=== PATIENT | female | born 1970 | race Caucasian/White ===

== ENCOUNTER 2018-04-09 12:36 | Emergency (ER) | payer MEDICAID, OTHER ==
[~2018-04-09] VITALS: Ht 162.6 cm; Wt 77.1 kg
[~2018-04-09 12:36] MED LIST: CARI-277; HYDR-1421; INSLANTI; INSULIN; SEROQUEL
[2018-04-09 14:47] VITALS: BP 98/65
[2018-04-09] MEDS ORDERED: methylPREDNISolone SOD SUCC 125 MG/2 ML VL IM ONE (15:00)
[2018-04-09] MEDS ORDERED: KETOROLAC TROMETH 60MG/2ML VIAL IM ONE (15:00)
== END 2018-04-09 15:35 | disposition home or self-care (01) ==
LOC: ER 12:43
DX: H60.93 Unspecified otitis externa, bilateral (principal); E11.9 Type 2 diabetes mellitus without complications; I11.0 Hypertensive heart disease with heart failure; I50.9 Heart failure, unspecified; Z88.0 Allergy status to penicillin; Z88.1 Allergy status to other antibiotic agents; Z79.4 Long term (current) use of insulin; Z79.899 Other long term (current) drug therapy
CPT/HCPCS: 82962; 96372; 99283; J1885; J2930

== ENCOUNTER 2018-09-05 17:03 | Emergency (ER) | payer MEDICAID ==
[~2018-09-05] VITALS: Ht 162.6 cm; Wt 92.1 kg
[2018-09-05 17:56] LABS: Basophils # (auto) 0.1 uL; Basophils % (auto) 0.7 % (0.0-2.0); Eosinophils # (auto) 1.9 uL; Eosinophils % (auto) 8.3 % (0.0-7.0); Hematocrit 48.1 % (36.0-46.0); Hemoglobin 16.2 g/dL (12.2-16.2); Lymphocytes # (auto) 4.5 uL; Lymphocytes % (auto) 19.9 % (10.0-50.0); Mean Corpuscular Hemoglobin 29.3 pg (28.0-32.0); Mean Corpuscular Hgb Conc. 33.8 g/dL (32.0-36.0); Mean Corpuscular Volume 86.8 fL (80.0-100.0); Monocytes # (auto) 1.5 uL; Monocytes % (auto) 6.5 % (0.0-12.0); Neutrophils # (auto) 14.8 uL; Neutrophils % (auto) 64.6 % (37.0-80.0); Platelet Count (auto) 409 10^3/uL (140-450); Red Blood Cells 5.55 10^6/uL (4.0-5.20); Red Cell Distribution Width 13.7 % (11.8-14.3); White Blood Cell 22.8 10^3/uL (4.4-10.8)
[2018-09-05 18:19] LABS: Sodium 132 mmol/L (136-145)
[2018-09-05 18:20] LABS: Alanine Aminotransferase 23 U/L (13-56); Alkaline Phosphatase 185 U/L (45-117); Anion Gap 10 (5-15); Aspartate Aminotransferase 12 U/L (15-37); Blood Urea Nitrogen 11 mg/dL (7-18); Calcium 8.5 mg/dL (8.5-10.1); Carbon Dioxide 23 mmol/L (21-32); Chloride 99 mmol/L (98-107); GFR African American 84 mL/min; GFR Non-African American 70 mL/min
[2018-09-05 18:21] LABS: Albumin 3.5 g/dL (3.4-5.0); Bilirubin, Total 0.7 mg/dL (0.2-1.0); Total Protein 7.7 g/dL (6.4-8.2)
[2018-09-05 18:24] LABS: Glucose 415 mg/dL (74-106)
[2018-09-06 00:30] VITALS: BP 123/73
== END 2018-09-06 00:33 | disposition left against medical advice (07) ==
LOC: ER 17:03
DX: R06.02 Shortness of breath (principal); Z53.21 Procedure and treatment not carried out due to patient leaving prior to being seen by health care provider
CPT/HCPCS: 36415; 71046; 80053; 84484; 85025; 93005

== ENCOUNTER 2020-08-27 14:23 | Emergency (ER) | payer MEDICAID ==
[~2020-08-27] VITALS: Ht 162.6 cm; Wt 79.8 kg
[2020-08-27 15:26] VITALS: BP 132/87
[2020-08-27] MEDS ORDERED: ACETAMINOPHEN 500 MG TAB PO ONE (16:00)
[2020-08-27] MEDS ORDERED: cefTRIAXone SOD 1,000 MG VL IM ONE (16:00)
[2020-08-27 16:46] LABS: Amphetamine Screen, Urine POSITIVE (NEGATIVE); Barbiturate Scree,Urine NEGATIVE (NEGATIVE); Benzodiazephine Screen, Urine NEGATIVE (NEGATIVE); Cannabinoid Screen, Urine NEGATIVE (NEGATIVE); Cocaine Screen, Urine NEGATIVE (NEGATIVE); Opiate Scree,Urine NEGATIVE (NEGATIVE); Phencyclidine Screen, Urine NEGATIVE (NEGATIVE)
== END 2020-08-27 16:21 | disposition home or self-care (01) ==
LOC: ER 14:23
DX: S80.862A Insect bite (nonvenomous), left lower leg, initial encounter (principal); S80.861A Insect bite (nonvenomous), right lower leg, initial encounter; S60.562A Insect bite (nonvenomous) of left hand, initial encounter; S60.561A Insect bite (nonvenomous) of right hand, initial encounter; S00.86XA Insect bite (nonvenomous) of other part of head, initial encounter; L01.00 Impetigo, unspecified; F15.10 Other stimulant abuse, uncomplicated; F12.10 Cannabis abuse, uncomplicated; I11.0 Hypertensive heart disease with heart failure; I50.9 Heart failure, unspecified; E11.9 Type 2 diabetes mellitus without complications; J44.9 Chronic obstructive pulmonary disease, unspecified; Z79.4 Long term (current) use of insulin; Z79.899 Other long term (current) drug therapy; Z88.1 Allergy status to other antibiotic agents; Z88.8 Allergy status to other drugs, medicaments and biological substances; W57.XXXA Bitten or stung by nonvenomous insect and other nonvenomous arthropods, initial encounter; Y93.89 Activity, other specified; Y92.89 Other specified places as the place of occurrence of the external cause; Y99.8 Other external cause status
CPT/HCPCS: 80307; 99283; J0696

== ENCOUNTER 2021-02-04 20:42 | Emergency (ER) | payer MEDICAID ==
[~2021-02-04] VITALS: Ht 162.6 cm; Wt 83.9 kg
[2021-02-04 22:45] VITALS: BP 142/87
[2021-02-04] MEDS ORDERED: TETANUS-DIPTH-ACEL PERTUSSIS 0.5ML SYR Tdap IM ONE (23:00)
[2021-02-04] MEDS ORDERED: guaiFENesin-CODEINE Liq 5 ML UD PO ONE (23:15)
[2021-02-05] MEDS ORDERED: BACITRACIN TOP OINT 1 UD PKG TOP ONE (00:45)
== END 2021-02-05 01:13 | disposition home or self-care (01) ==
LOC: ER 20:42
DX: S61.011A Laceration without foreign body of right thumb without damage to nail, initial encounter (principal); I11.0 Hypertensive heart disease with heart failure; I50.9 Heart failure, unspecified; E11.9 Type 2 diabetes mellitus without complications; J44.9 Chronic obstructive pulmonary disease, unspecified; Z87.891 Personal history of nicotine dependence; Z79.4 Long term (current) use of insulin; Z79.899 Other long term (current) drug therapy; Z88.1 Allergy status to other antibiotic agents; Z88.8 Allergy status to other drugs, medicaments and biological substances; W26.8XXA Contact with other sharp object(s), not elsewhere classified, initial encounter; Y93.89 Activity, other specified; Y92.89 Other specified places as the place of occurrence of the external cause; Y99.8 Other external cause status
CPT/HCPCS: 12002; 90471; 90715

== ENCOUNTER 2021-08-08 16:45 | Emergency (ER) | payer MEDICAID ==
[~2021-08-08] VITALS: Ht 165.1 cm; Wt 70.3 kg
[2021-08-08 17:20] VITALS: BP 135/82
[2021-08-08] MEDS ORDERED: CLIN300C8 PO (19:14)
[2021-08-08] MEDS: diphenhdrAMINE HCL 25 MG CAP PO ONE (22:57)
[2021-08-08] MEDS: DexAMETHasone SOD PHOS 10MG/1ML VIAL INJ IM ONE (22:57)
[2021-08-08] MEDS: CLINDAMYCIN HCL 150 MG CAP PO ONE (22:58)
== END 2021-08-08 23:50 | disposition home or self-care (01) ==
LOC: ER 16:45
DX: J02.9 Acute pharyngitis, unspecified (principal); I11.0 Hypertensive heart disease with heart failure; J44.9 Chronic obstructive pulmonary disease, unspecified; E11.9 Type 2 diabetes mellitus without complications; F12.10 Cannabis abuse, uncomplicated; Z87.891 Personal history of nicotine dependence; Z88.1 Allergy status to other antibiotic agents; Z88.8 Allergy status to other drugs, medicaments and biological substances; Z20.822 Contact with and (suspected) exposure to COVID-19
CPT/HCPCS: 36415; 87070; 87426; 87880; 96372; 99283; J1100

== ENCOUNTER 2022-11-26 22:30 | Inpatient (IN) | payer MEDICAID ==
[~2022-11-26] VITALS: Ht 162.6 cm; Wt 79.4 kg
[~2022-11-26 22:30] MED LIST changes: +CLIN300C70 PO; +HYDR-4902 PO; +IBUP-1455 PO
[2022-11-26 23:18] LABS: Basophils # (auto) 0.1 10 ^3/uL (0-0.2); Basophils % (auto) 0.3 % (0.0-2.0); Eosinophils # (auto) 0.3 10 ^3/uL (0-0.8); Eosinophils % (auto) 1.5 % (0.0-7.0); Hematocrit 40.7 % (36.0-46.0); Hemoglobin 13.7 g/dL (12.2-16.2); Lymphocytes # (auto) 2.9 10 ^3/uL (0.4-5.4); Lymphocytes % (auto) 16.3 % (10.0-50.0); Mean Corpuscular Hemoglobin 29.2 pg (28.0-32.0); Mean Corpuscular Hgb Conc. 33.5 g/dL (32.0-36.0); Mean Corpuscular Volume 87.1 fL (80.0-100.0); Monocytes # (auto) 1.2 10 ^3/uL (0-1.3); Monocytes % (auto) 6.6 % (0.0-12.0); Neutrophils # (auto) 13.3 10 ^3/uL (1.6-8.6); Neutrophils % (auto) 75.3 % (37.0-80.0); Red Blood Cells 4.68 10^6/uL (4.0-5.20); Red Cell Distribution Width 13.1 % (11.8-14.3); White Blood Cell 17.7 10^3/uL (4.4-10.8)
[2022-11-26 23:38] LABS: Alanine Aminotransferase 17 U/L (7-40); Alkaline Phosphatase 161 U/L (46-116); Anion Gap 5.8 (5-15); Aspartate Aminotransferase 9 U/L (13-40); BUN/Creatinine Ratio 9.2 (10.0-20.0); Blood Urea Nitrogen 9 mg/dL (9-23); Calcium 9.3 mg/dL (8.7-10.4); Carbon Dioxide 29.2 mmol/L (20-30); Chloride 100 mmol/L (98-107); Glucose 370 mg/dL (74-106); Potassium 3.7 mmol/L (3.5-5.1); Sodium 135 mmol/L (136-145)
[2022-11-26 23:39] LABS: Albumin 4.3 g/dL (3.2-4.8); Bilirubin, Total 0.4 mg/dL (0.2-1.0); Total Protein 7.5 g/dL (5.7-8.2)
[2022-11-27] MEDS ORDERED: IODIXANOL 320MG/ML 100ML BTL IV ONE (03:55)
[2022-11-27] MEDS ORDERED: PIPERACILLIN-TAZOB 3.375GM 100 ML IV ONE (04:00)
[2022-11-27] MEDS ORDERED: VANCOMYCIN 1GM/250ML 250 ML IV ONE ×2 (04:00→10:00)
[2022-11-27] MEDS ORDERED: DEXTROSE (50%) 50ML SYRG IV PRN (06:30)
[2022-11-27] MEDS ORDERED: MORPHINE SULFATE INJ 2 MG/ml SYRG IV PRN (06:30)
[2022-11-27] MEDS ORDERED: levoFLOXacin 500MG 100 ML IV SCH (07:00)
[2022-11-27] MEDS: SODIUM CHLORIDE 0.9% 1,000 ML IV SCH ×2 (07:51→19:50)
[2022-11-27] MEDS: ONDANSETRON HCL 4 MG/2 ML VIAL IV PRN ×2 (08:07→22:40)
[2022-11-27 09:03] VITALS: PULSE 105; RESP 12; O2SAT 97
[2022-11-27] MEDS: PANTOPRAZOLE 40 MG/10 ML VIAL INJ IV SCH (10:00)
[2022-11-27] MEDS: ACCU-CHEK COMFORT CURVE STRIP VI SCH ×3 (13:01→23:59)
[2022-11-27] MEDS: InsuLIN REG 1unit/0.01ml Soln (100units/ml) SC SCH ×3 (13:02→23:59)
[2022-11-27 13:31] LABS: Urine WBC None Seen /hpf (0 - 5)
[2022-11-27 14:05] LABS: Urine Bacteria NONE SEEN /hpf (None Seen); Urine Blood Negative /uL (Negative); Urine Clarity Clear (Clear); Urine Color Yellow (Yellow); Urine Mucus FEW (None Seen); Urine Protein, UAD 1+ (Negative)
[2022-11-27 14:19] LABS: Amphetamine Screen, Urine Pos (NEGATIVE); Barbiturate Scree,Urine Neg (NEGATIVE); Benzodiazephine Screen, Urine Neg (NEGATIVE); Cannabinoid Screen, Urine Pos (NEGATIVE); Cocaine Screen, Urine Neg (NEGATIVE); Opiate Scree,Urine Neg (NEGATIVE); Phencyclidine Screen, Urine Neg (NEGATIVE)
[2022-11-27 14:21] LABS: Urine Specific Gravity > 1.050 (1.001-1.035)
[2022-11-27] MEDS: OXYCODONE W/ ACETAMINOPHEN 5/325MG TABLET PO PRN ×2 (15:12→22:40)
[2022-11-27] MEDS: PIPERACILLIN-TAZOB 3.375GM 100 ML IV SCH (18:57)
[2022-11-27] MEDS: DOCUSATE SOD 100 MG CAP PO SCH (22:41)
[2022-11-27 23:47] VITALS: BP 109/70; PULSE 107; RESP 18; TEMP 98.1; O2SAT 90
[2022-11-28] VITALS (10 sets, daily range): BP systolic 107–132; BP diastolic 64–75; PULSE 69–102; RESP 16–19; TEMP 97.9–98.6; O2SAT 91–98
[2022-11-28] MEDS: PIPERACILLIN-TAZOB 3.375GM 100 ML IV SCH ×3 (02:00→12:24)
[2022-11-28 06:03] LABS: Basophils # (auto) 0.1 10 ^3/uL (0-0.2); Basophils % (auto) 0.5 % (0.0-2.0); Eosinophils # (auto) 0.3 10 ^3/uL (0-0.8); Eosinophils % (auto) 1.9 % (0.0-7.0); Hematocrit 37.7 % (36.0-46.0); Hemoglobin 12.8 g/dL (12.2-16.2); Lymphocytes # (auto) 1.7 10 ^3/uL (0.4-5.4); Lymphocytes % (auto) 11.3 % (10.0-50.0); Mean Corpuscular Hemoglobin 29.5 pg (28.0-32.0); Mean Corpuscular Volume 86.7 fL (80.0-100.0); Monocytes # (auto) 1.1 10 ^3/uL (0-1.3); Monocytes % (auto) 7.7 % (0.0-12.0); Neutrophils # (auto) 11.5 10 ^3/uL (1.6-8.6); Neutrophils % (auto) 78.6 % (37.0-80.0); Red Blood Cells 4.35 10^6/uL (4.0-5.20); Red Cell Distribution Width 13.1 % (11.8-14.3); White Blood Cell 14.7 10^3/uL (4.4-10.8)
[2022-11-28] MEDS: ACCU-CHEK COMFORT CURVE STRIP VI SCH ×4 (06:48→23:32)
[2022-11-28] MEDS: OXYCODONE W/ ACETAMINOPHEN 5/325MG TABLET PO PRN (06:48)
[2022-11-28 06:49] LABS: Alanine Aminotransferase 352 U/L (7-40); Albumin 3.6 g/dL (3.2-4.8); Alkaline Phosphatase 392 U/L (46-116); Anion Gap 6.4 (5-15); Aspartate Aminotransferase 350 U/L (13-40); BUN/Creatinine Ratio 15.1 (10.0-20.0); Blood Urea Nitrogen 11 mg/dL (9-23); Calcium 8.7 mg/dL (8.7-10.4); Carbon Dioxide 27.6 mmol/L (20-30); Chloride 101 mmol/L (98-107); Glucose 184 mg/dL (74-106); Potassium 3.6 mmol/L (3.5-5.1); Sodium 135 mmol/L (136-145)
[2022-11-28 06:50] LABS: Bilirubin, Total 0.6 mg/dL (0.2-1.0); Total Protein 6.3 g/dL (5.7-8.2)
[2022-11-28] MEDS: InsuLIN REG 1unit/0.01ml Soln (100units/ml) SC SCH ×4 (06:54→23:29)
[2022-11-28] MEDS: SODIUM CHLORIDE 0.9% 1,000 ML IV SCH ×2 (08:49→09:10)
[2022-11-28] MEDS: DOCUSATE SOD 100 MG CAP PO SCH ×2 (10:00→23:36)
[2022-11-28 10:42] LABS: INR 1.14 (0.9-1.15); Partial Thromboplastin Time 29.5 SEC (24.5-34.5); Prothrombin Time 11.9 sec (9.3-11.8)
[2022-11-28] MEDS: PANTOPRAZOLE 40 MG/10 ML VIAL INJ IV SCH (12:24)
[2022-11-28] MEDS ORDERED: PNEUMOCOCCAL VACC POLYS 25 MCG/0.5 ML VIAL IM ONE (14:00)
[2022-11-28] MEDS ORDERED: fentaNYL CITRATE 100 MCG/2 ML VL ONE (14:25)
[2022-11-28] MEDS ORDERED: MIDAZOLAM HCL 2MG/2ML 2ml VIAL (1mg/ml) ONE (14:25)
[2022-11-28] MEDS ORDERED: PROPOFOL 10 MG/ML 20 ML IV ONE (14:54)
[2022-11-28] MEDS ORDERED: LABETALOL HCL 5 MG/ML 4ML SYRINGE IV PRN (15:30)
[2022-11-28] MEDS ORDERED: HYDROmorphone HCL 2 MG/ML VL/or syr IV PRN (15:30)
[2022-11-28] MEDS ORDERED: MORPHINE SULFATE 4 MG/ML SYR/VIAL IV PRN (15:30)
[2022-11-28] MEDS ORDERED: ePHEDrine SULFATE 50 MG/ML AMP IV PRN (15:30)
[2022-11-28] MEDS ORDERED: ONDANSETRON HCL 4 MG/2 ML VIAL IV PRN (15:30)
[2022-11-28] MEDS ORDERED: MIDAZOLAM HCL 2MG/2ML 2ml VIAL (1mg/ml) IV PRN (15:30)
[2022-11-28] MEDS ORDERED: ALBUTEROL SULF 2.5 MG/0.5ML(0.5%) NEB SOLN NEB PRN (17:15)
[2022-11-28] MEDS ORDERED: VANCOMYCIN PER PHARMACY 0 MG IV SCH (17:15)
[2022-11-28] MEDS ORDERED: IPRATROPIUM BROM 0.5 MG/2.5ML INH SOL NEB PRN (17:15)
[2022-11-28] MEDS ORDERED: VANCOMYCIN 1GM/250ML 250 ML IV ONE (17:30)
[2022-11-28] MEDS ORDERED: PIPERACILLIN-TAZOB 3.375GM 100 ML IV SCH (22:00)
[2022-11-28] MEDS: MUPIROCIN 2% OINT 15gm or 22gm FOR MRSA NARES EACHNOSTRI SCH (22:00)
[2022-11-29] VITALS (7 sets, daily range): BP systolic 93–116; BP diastolic 60–68; PULSE 72–101; RESP 16–20; TEMP 36.9; O2SAT 90–96
[2022-11-29] MEDS: CEFEPIME 2GM/50ML NS 50 ML IV SCH ×3 (00:13→17:17)
[2022-11-29] MEDS: SODIUM CHLORIDE 0.9% 1,000 ML IV SCH (06:27)
[2022-11-29] MEDS: ACCU-CHEK COMFORT CURVE STRIP VI SCH ×3 (06:27→17:47)
[2022-11-29] MEDS: InsuLIN REG 1unit/0.01ml Soln (100units/ml) SC SCH ×3 (06:52→17:47)
[2022-11-29 07:53] LABS: Basophils # (auto) 0.1 10 ^3/uL (0-0.2); Basophils % (auto) 0.7 % (0.0-2.0); Eosinophils # (auto) 0.4 10 ^3/uL (0-0.8); Hematocrit 38.3 % (36.0-46.0); Hemoglobin 12.9 g/dL (12.2-16.2); Lymphocytes # (auto) 2.3 10 ^3/uL (0.4-5.4); Lymphocytes % (auto) 16.1 % (10.0-50.0); Mean Corpuscular Hemoglobin 29.1 pg (28.0-32.0); Mean Corpuscular Hgb Conc. 33.6 g/dL (32.0-36.0); Mean Corpuscular Volume 86.5 fL (80.0-100.0); Monocytes # (auto) 1.1 10 ^3/uL (0-1.3); Monocytes % (auto) 7.5 % (0.0-12.0); Neutrophils # (auto) 10.6 10 ^3/uL (1.6-8.6); Neutrophils % (auto) 72.7 % (37.0-80.0); Red Blood Cells 4.42 10^6/uL (4.0-5.20); Red Cell Distribution Width 13.1 % (11.8-14.3); White Blood Cell 14.6 10^3/uL (4.4-10.8)
[2022-11-29] MEDS ORDERED: VANCOMYCIN 1GM/250ML 250 ML IV SCH (08:00)
[2022-11-29 08:09] LABS: Anion Gap 6.5 (5-15); Carbon Dioxide 26.5 mmol/L (20-30); Chloride 103 mmol/L (98-107); Potassium 3.8 mmol/L (3.5-5.1); Sodium 136 mmol/L (136-145)
[2022-11-29 08:10] LABS: Calcium 8.8 mg/dL (8.5-10.1)
[2022-11-29 08:15] LABS: BUN/Creatinine Ratio 11.1 (10.0-20.0); Blood Urea Nitrogen 9 mg/dL (9-23); Glucose 188 mg/dL (74-106)
[2022-11-29] MEDS: MUPIROCIN 2% OINT 15gm or 22gm FOR MRSA NARES EACHNOSTRI SCH (10:00)
[2022-11-29] MEDS: PANTOPRAZOLE 40 MG/10 ML VIAL INJ IV SCH (10:05)
[2022-11-29] MEDS: DOCUSATE SOD 100 MG CAP PO SCH (10:05)
[2022-11-29] MEDS: OXYCODONE W/ ACETAMINOPHEN 5/325MG TABLET PO PRN (10:06)
[2022-11-29] MEDS ORDERED: BACDST PO (14:09)
[2022-11-29] MEDS ORDERED: CEPH250C PO (14:09)
[2022-11-29] MEDS ORDERED: NAP500T PO (14:10)
[2022-11-30 09:32] LABS: Hepatitis B Surface Antigen Negative (Negative)
[2022-11-30 09:54] LABS: Hepatitis C Antibody Negative (Negative)
== END 2022-11-29 18:36 | disposition home or self-care (01) | DRG 383 ==
LOC: ER 22:35 → OVERFLOW 11-27 06:21 → CENTRAL 11-27 20:52
PROVIDERS: ADMIT Internal Medicine; ATTEND Student in an Organized Health Care Education/Training Program
PROC: 0X940ZZ Drainage of Right Axilla, Open Approach (ICD-10-PCS; principal; 2022-11-28 14:14)
DX: L02.411 Cutaneous abscess of right axilla (principal); I11.0 Hypertensive heart disease with heart failure; I50.9 Heart failure, unspecified; D72.829 Elevated white blood cell count, unspecified; E11.65 Type 2 diabetes mellitus with hyperglycemia; J44.9 Chronic obstructive pulmonary disease, unspecified; L03.111 Cellulitis of right axilla; Z88.1 Allergy status to other antibiotic agents; Z88.8 Allergy status to other drugs, medicaments and biological substances
CPT/HCPCS: 36415; 71045; 71260; 76705; 80048; 80053; 80307; 81001; 82962; 83605; 84484; 85025; 85610; 85730; 86803; 87040; 87070; 87075; 87077; 87081; 87186; 87205; 87340; 93005; 96365; 96367; 96368; 96372; 96375; C9113; G0378; J0692; J1815; J1956; J2250; J2405; J2543; J2704; Q9967

== ENCOUNTER 2023-02-07 00:24 | Emergency (ER) | payer MEDICAID ==
[~2023-02-07] VITALS: Ht 162.6 cm; Wt 75.0 kg
[~2023-02-07 00:24] MED LIST changes: +BACDST PO; +CEPH250C PO; +NAP500T PO
[2023-02-07 01:03] LABS: Basophils # (auto) 0.1 10 ^3/uL (0-0.2); Basophils % (auto) 0.8 % (0.0-2.0); Eosinophils # (auto) 0.4 10 ^3/uL (0-0.8); Eosinophils % (auto) 3.9 % (0.0-7.0); Hematocrit 42.7 % (36.0-46.0); Hemoglobin 14.6 g/dL (12.2-16.2); Lymphocytes % (auto) 28.7 % (10.0-50.0); Mean Corpuscular Hemoglobin 29.8 pg (28.0-32.0); Mean Corpuscular Hgb Conc. 34.3 g/dL (32.0-36.0); Mean Corpuscular Volume 86.9 fL (80.0-100.0); Monocytes # (auto) 0.6 10 ^3/uL (0-1.3); Neutrophils # (auto) 6.2 10 ^3/uL (1.6-8.6); Neutrophils % (auto) 60.6 % (37.0-80.0); Red Blood Cells 4.91 10^6/uL (4.0-5.20); Red Cell Distribution Width 13.4 % (11.8-14.3); White Blood Cell 10.3 10^3/uL (4.4-10.8)
[2023-02-07 01:20] LABS: Alanine Aminotransferase 15 U/L (7-40); Alkaline Phosphatase 149 U/L (46-116); Anion Gap 6 (5-15); Aspartate Aminotransferase 10 U/L (13-40); BUN/Creatinine Ratio 14.9 (10.0-20.0); Blood Urea Nitrogen 15 mg/dL (9-23); Calcium 8.9 mg/dL (8.7-10.4); Carbon Dioxide 26 mmol/L (20-30); Chloride 105 mmol/L (98-107); Glucose 283 mg/dL (74-106); Magnesium 1.6 mg/dL (1.6-2.6); Potassium 3.8 mmol/L (3.5-5.1); Sodium 137 mmol/L (136-145)
[2023-02-07 01:21] LABS: Bilirubin, Total 0.2 mg/dL (0.2-1.0); Total Protein 6.9 g/dL (5.7-8.2)
[2023-02-07 01:22] LABS: INR 0.99 (0.9-1.15); Partial Thromboplastin Time 28.3 SEC (24.5-34.5); Prothrombin Time 10.4 sec (9.3-11.8)
[2023-02-07 06:30] VITALS: BP 131/89; PULSE 105; RESP 20; O2SAT 96
== END 2023-02-07 06:36 | disposition home or self-care (01) ==
LOC: EDBD 00:24 → ER 00:24
DX: R07.89 Other chest pain (principal); F15.10 Other stimulant abuse, uncomplicated; F12.10 Cannabis abuse, uncomplicated; I11.0 Hypertensive heart disease with heart failure; I50.9 Heart failure, unspecified; E11.9 Type 2 diabetes mellitus without complications; J44.9 Chronic obstructive pulmonary disease, unspecified; F17.210 Nicotine dependence, cigarettes, uncomplicated; Z79.4 Long term (current) use of insulin; Z79.1 Long term (current) use of non-steroidal anti-inflammatories (NSAID); Z79.2 Long term (current) use of antibiotics; Z79.899 Other long term (current) drug therapy; Z88.1 Allergy status to other antibiotic agents; Z88.5 Allergy status to narcotic agent; Z88.8 Allergy status to other drugs, medicaments and biological substances
CPT/HCPCS: 36415; 71045; 80053; 83735; 83880; 84484; 85025; 85610; 85730; 93005

== ENCOUNTER 2023-04-14 15:13 | Inpatient (IN) | payer MEDICAID ==
[~2023-04-14] VITALS: Ht 162.6 cm; Wt 91.8 kg
[~2023-04-14 15:13] MED LIST changes: -CARI-277; +CARI-277 PO; -INSLANTI; +INSLANTI SC
[2023-04-14] MEDS ORDERED: HYDROmorphone HCL 2 MG/ML VL/or syr IM ONE (16:15)
[2023-04-14] MEDS ORDERED: ONDANSETRON HCL 4 MG/2 ML VIAL IM ONE (16:15)
[2023-04-14 16:20] LABS: Basophils # (auto) 0.1 10 ^3/uL (0-0.2); Basophils % (auto) 0.6 % (0.0-2.0); Eosinophils # (auto) 0.1 10 ^3/uL (0-0.8); Eosinophils % (auto) 0.6 % (0.0-7.0); Hematocrit 50.6 % (36.0-46.0); Hemoglobin 16.7 g/dL (12.2-16.2); Lymphocytes # (auto) 2.8 10 ^3/uL (0.4-5.4); Lymphocytes % (auto) 15.1 % (10.0-50.0); Mean Corpuscular Hemoglobin 28.7 pg (28.0-32.0); Mean Corpuscular Volume 87.1 fL (80.0-100.0); Monocytes # (auto) 0.8 10 ^3/uL (0-1.3); Monocytes % (auto) 4.6 % (0.0-12.0); Neutrophils # (auto) 14.5 10 ^3/uL (1.6-8.6); Neutrophils % (auto) 79.1 % (37.0-80.0); Red Cell Distribution Width 13.8 % (11.8-14.3); White Blood Cell 18.3 10^3/uL (4.4-10.8)
[2023-04-14 16:22] LABS: Chloride 101 mmol/L (98-107); Potassium 4.6 mmol/L (3.5-5.1); Sodium 132 mmol/L (136-145)
[2023-04-14 16:23] LABS: Anion Gap 10 (5-15); Carbon Dioxide 21 mmol/L (20-30)
[2023-04-14 16:24] LABS: Calcium 9.7 mg/dL (8.5-10.1)
[2023-04-14 16:28] LABS: BUN/Creatinine Ratio 11.9 (10.0-20.0); Blood Urea Nitrogen 12 mg/dL (9-23); Glucose 400 mg/dL (74-106)
[2023-04-14 16:50] VITALS: PULSE 125; RESP 18; O2SAT 99
[2023-04-14] MEDS ORDERED: SODIUM CHLORIDE 0.9% 1,000 ML IV ONE (18:30)
[2023-04-14] MEDS ORDERED: INSULIN LISPRO (HUMAN) 100 UNITS/ML ML SC ONE ×2 (18:30→19:15)
[2023-04-14 23:36] LABS: Urine Epithelial Cast None Seen /hpf (<5)
[2023-04-15] VITALS (13 sets, daily range): BP systolic 85–163; BP diastolic 64–80; PULSE 97–150; RESP 18–32; TEMP 98.3; O2SAT 98–100
[2023-04-15 00:03] LABS: Amphetamine Screen, Urine Pos (NEGATIVE); Barbiturate Scree,Urine Neg (NEGATIVE); Benzodiazephine Screen, Urine Neg (NEGATIVE); Cocaine Screen, Urine Neg (NEGATIVE); Opiate Scree,Urine Neg (NEGATIVE); Phencyclidine Screen, Urine Neg (NEGATIVE)
[2023-04-15 00:04] LABS: Cannabinoid Screen, Urine Neg (NEGATIVE)
[2023-04-15 00:09] LABS: Urine Bacteria MANY /hpf (None Seen); Urine Hyaline Cast FEW /lpf (0 - 2); Urine Mucus FEW (None Seen); Urine WBC 55 /hpf (0 - 5)
[2023-04-15 00:20] LABS: Urine Clarity HAZY (Clear); Urine Color Yellow (Yellow)
[2023-04-15 00:23] LABS: Urine Specific Gravity 1.015 (1.001-1.035)
[2023-04-15 00:24] LABS: Urine Blood 2+ /uL (Negative); Urine Protein, UAD TRACE (Negative); Urine Urobilinogen Normal (Negative)
[2023-04-15] MEDS ORDERED: CEFTRIAXONE SODIUM 2 GM in D5W 5% 100 ML IV ONE (00:45)
[2023-04-15] MEDS ORDERED: levoFLOXacin 750MG 150 ML IV ONE (01:15)
[2023-04-15] MEDS ORDERED: HYDROmorphone HCL 2 MG/ML VL/or syr IV PRN (03:45)
[2023-04-15] MEDS ORDERED: ACETAMINOPHEN 325 MG TAB PO PRN (03:45)
[2023-04-15] MEDS ORDERED: DEXTROSE (50%) 50ML SYRG IV PRN ×2 (03:45→12:15)
[2023-04-15] MEDS ORDERED: VANCOMYCIN PER PHARMACY 0 MG IV SCH (03:45)
[2023-04-15] MEDS ORDERED: ONDANSETRON HCL 4 MG/2 ML VIAL IV PRN (03:45)
[2023-04-15] MEDS: SODIUM CHLORIDE 0.9% 1,000 ML IV SCH ×4 (04:08→23:31)
[2023-04-15] MEDS ORDERED: VANCOMYCIN 1GM/200ML 200 ML IV ONE (05:00)
[2023-04-15] MEDS ORDERED: NITROGLYCERIN 0.4 MG SL TAB SL PRN (05:45)
[2023-04-15] MEDS ORDERED: MORPHINE SULFATE INJ 2 MG/ml SYRG IV PRN (05:45)
[2023-04-15 06:05] LABS: Hematocrit 47.9 % (36.0-46.0); Hemoglobin 16.3 g/dL (12.2-16.2); Mean Corpuscular Hemoglobin 29.6 pg (28.0-32.0); Mean Corpuscular Hgb Conc. 34.1 g/dL (32.0-36.0); Mean Corpuscular Volume 86.8 fL (80.0-100.0); Red Blood Cells 5.52 10^6/uL (4.0-5.20); Red Cell Distribution Width 13.5 % (11.8-14.3); White Blood Cell 5.3 10^3/uL (4.4-10.8)
[2023-04-15 06:07] LABS: Basophils % (manual) 0 (0.0-2.0); Blast Cells 0; Eosinophils % (manual) 0 (0-7); Metamyelocytes % 0; Reactive Lymphocytes 0
[2023-04-15 06:28] LABS: Alanine Aminotransferase 15 U/L (7-40); Albumin 4.1 g/dL (3.2-4.8); Alkaline Phosphatase 147 U/L (46-116); Anion Gap 10 (5-15); Aspartate Aminotransferase 11 U/L (13-40); BUN/Creatinine Ratio 17.8 (10.0-20.0); Bilirubin, Total 0.8 mg/dL (0.2-1.0); Blood Urea Nitrogen 16 mg/dL (9-23); Calcium 8.6 mg/dL (8.7-10.4); Carbon Dioxide 22 mmol/L (20-30); Chloride 103 mmol/L (98-107); Glucose 245 mg/dL (74-106); Sodium 135 mmol/L (136-145); Total Protein 7.2 g/dL (5.7-8.2)
[2023-04-15] MEDS ORDERED: MORPHINE SULFATE 4 MG/ML SYR/VIAL IV PRN (06:30)
[2023-04-15] MEDS ORDERED: MIDAZOLAM DRIP 50 mg/50mL 50 ML IV SCH (06:30)
[2023-04-15] MEDS ORDERED: LORazepam 2MG/ML-1ML VIAL IV PRN (06:30)
[2023-04-15] MEDS ORDERED: NOREPINEPHRINE 8 MG/250ML KIT 250 ML IV ONE (06:37)
[2023-04-15] MEDS ORDERED: MIDAZOLAM DRIP 50 mg/50mL 50 ML IV ONE (06:38)
[2023-04-15] MEDS: MIDAZOLAM DRIP 50 mg/50mL 50 ML IV SCH ×2 (06:40→19:06)
[2023-04-15] MEDS: NOREPINEPHRINE 8 MG/250ML KIT 250 ML IV SCH (06:40)
[2023-04-15] MEDS ORDERED: fentaNYL Drip 2500mCg/250mlNS 250 ML IV ONE (07:14)
[2023-04-15] MEDS: fentaNYL Drip 2500mCg/250mlNS 250 ML IV SCH ×2 (07:15→19:08)
[2023-04-15 07:46] LABS: Band Neutrophils % (manual) 2; Lymphocytes % (manual) 50 (10.0-50.0); Monocytes % (manual) 5 (0-12); Myelocytes % 3; Promyelocytes % 1
[2023-04-15 07:47] LABS: Giant Platelets Few; Platelet Estimate Adequate
[2023-04-15 08:39] LABS: Base Excess -8.4 mmol/L (-2.0-2.0)
[2023-04-15] MEDS: InsuLIN REG 1unit/0.01ml Soln (100units/ml) SC SCH ×2 (08:51→12:07)
[2023-04-15] MEDS: ACCU-CHEK COMFORT CURVE STRIP VI SCH ×9 (08:51→22:30)
[2023-04-15] MEDS: IPRATROPIUM BROM 0.5 MG/2.5ML INH SOL NEB SCH ×4 (10:28→22:49)
[2023-04-15 10:45] LABS: Amphetamine Screen, Urine Pos (NEGATIVE); Barbiturate Scree,Urine Neg (NEGATIVE); Cocaine Screen, Urine Neg (NEGATIVE); Opiate Scree,Urine Neg (NEGATIVE); Phencyclidine Screen, Urine Neg (NEGATIVE)
[2023-04-15 10:46] LABS: Benzodiazephine Screen, Urine Pos (NEGATIVE); Cannabinoid Screen, Urine Neg (NEGATIVE)
[2023-04-15] MEDS ORDERED: SODIUM CHLORIDE 0.9% 1,000 ML IV SCH (11:00)
[2023-04-15] MEDS ORDERED: FAMOTIDINE (10MG/ML) 2ML VL IV ONE (11:00)
[2023-04-15] MEDS ORDERED: SODIUM CHLORIDE 0.9% 1,000 ML IV ONE ×2 (11:00→16:30)
[2023-04-15] MEDS: PROPOFOL 100 ML IV SCH ×2 (11:44→19:07)
[2023-04-15 11:46] LABS: Lipase 69 U/L (12-53)
[2023-04-15 11:48] LABS: Amylase 73 U/L (30-118)
[2023-04-15] MEDS ORDERED: INSULIN LANTUS (GLARGINE) 1 /0.01ml (100units/ml) SC ONE (12:15)
[2023-04-15] MEDS: INSULIN DRIP 100 UNIT/100ML 100 ML IV SCH ×4 (13:27→17:06)
[2023-04-15 15:06] LABS: Triglycerides 121 mg/dL (< 150)
[2023-04-15 15:07] LABS: LDL Cholesterol 103 mg/dL (< 100)
[2023-04-15 15:08] LABS: HDL Cholesterol 38 mg/dL (40-59)
[2023-04-15 15:09] LABS: Cholesterol 155 mg/dL (< 200)
[2023-04-15] MEDS ORDERED: ENOXAPARIN SOD 80 MG/0.8ML SYRINGE SC ONE (16:30)
[2023-04-15] MEDS: VANCOMYCIN 1GM/200ML 200 ML IV SCH (18:19)
[2023-04-15] MEDS ORDERED: IOHEXOL 350 MG/ML 100ML IJ ONE (21:03)
[2023-04-15] MEDS: FAMOTIDINE (10MG/ML) 2ML VL IV SCH (21:33)
[2023-04-15] MEDS: ENOXAPARIN SOD 80 MG/0.8ML SYRINGE SC SCH (21:34)
[2023-04-16] VITALS (97 sets, daily range): BP systolic 84–125; BP diastolic 55–78; PULSE 88–117; RESP 14–25; TEMP 97.2–100; O2SAT 96–100
[2023-04-16] MEDS: ACCU-CHEK COMFORT CURVE STRIP VI SCH ×11 (00:08→23:37)
[2023-04-16] MEDS: IPRATROPIUM BROM 0.5 MG/2.5ML INH SOL NEB SCH ×6 (02:50→22:14)
[2023-04-16 04:14] LABS: Basophils # (auto) 0.1 10 ^3/uL (0-0.2); Basophils % (auto) 0.3 % (0.0-2.0); Eosinophils # (auto) 0.1 10 ^3/uL (0-0.8); Eosinophils % (auto) 0.2 % (0.0-7.0); Hematocrit 37.1 % (36.0-46.0); Hemoglobin 12.3 g/dL (12.2-16.2); Lymphocytes # (auto) 2.4 10 ^3/uL (0.4-5.4); Lymphocytes % (auto) 10.4 % (10.0-50.0); Mean Corpuscular Hemoglobin 28.8 pg (28.0-32.0); Monocytes # (auto) 1.3 10 ^3/uL (0-1.3); Monocytes % (auto) 5.7 % (0.0-12.0); Neutrophils # (auto) 19.3 10 ^3/uL (1.6-8.6); Neutrophils % (auto) 83.4 % (37.0-80.0); Red Blood Cells 4.26 10^6/uL (4.0-5.20); Red Cell Distribution Width 13.9 % (11.8-14.3); White Blood Cell 23.1 10^3/uL (4.4-10.8)
[2023-04-16 04:33] LABS: Alanine Aminotransferase 326 U/L (7-40); Albumin 2.9 g/dL (3.2-4.8); Alkaline Phosphatase 116 U/L (46-116); Amylase 49 U/L (30-118); Anion Gap 8 (5-15); Aspartate Aminotransferase 179 U/L (13-40); Blood Urea Nitrogen 15 mg/dL (9-23); Calcium 7.2 mg/dL (8.7-10.4); Carbon Dioxide 21 mmol/L (20-30); Chloride 112 mmol/L (98-107); Creatine Kinase IFCC 325 U/L (34-145); Glucose 103 mg/dL (74-106); Lipase 25 U/L (12-53); Potassium 3.3 mmol/L (3.5-5.1); Sodium 141 mmol/L (136-145)
[2023-04-16 04:34] LABS: Bilirubin, Total 0.2 mg/dL (0.2-1.0); Total Protein 5.2 g/dL (5.7-8.2)
[2023-04-16] MEDS: SODIUM CHLORIDE 0.9% 1,000 ML IV SCH (06:07)
[2023-04-16] MEDS: fentaNYL Drip 2500mCg/250mlNS 250 ML IV SCH ×2 (07:45→19:50)
[2023-04-16] MEDS: PROPOFOL 100 ML IV SCH ×3 (07:45→22:01)
[2023-04-16 07:58] LABS: Base Excess -8.1 mmol/L (-2.0-2.0)
[2023-04-16] MEDS: VANCOMYCIN 1GM/200ML 200 ML IV SCH ×2 (08:25→21:50)
[2023-04-16] MEDS ORDERED: POTASSIUM CHL 20MEQ/100ML 100 ML IV ONE (09:45)
[2023-04-16] MEDS ORDERED: INSULIN LANTUS (GLARGINE) 1 /0.01ml (100units/ml) SC SCH (10:00)
[2023-04-16] MEDS: ENOXAPARIN SOD 80 MG/0.8ML SYRINGE SC SCH (10:00)
[2023-04-16] MEDS ORDERED: levoFLOXacin 500MG 100 ML IV SCH (10:00)
[2023-04-16] MEDS: MIDAZOLAM DRIP 50 mg/50mL 50 ML IV SCH ×3 (10:28→22:02)
[2023-04-16] MEDS: FAMOTIDINE (10MG/ML) 2ML VL IV SCH ×2 (10:28→21:50)
[2023-04-16] MEDS: NOREPINEPHRINE 8 MG/250ML KIT 250 ML IV SCH (10:28)
[2023-04-16] MEDS ORDERED: MEROPENEM 1GM IVPB 50 ML IV ONE (13:00)
[2023-04-16] MEDS ORDERED: EPINEPHrine HCL 1 MG/10 ML SYRG IV ONE (15:39)
[2023-04-16] MEDS ORDERED: SODIUM BICARBONATE 8.4% INJ 50ML SYRINGE IV ONE (15:39)
[2023-04-16] MEDS ORDERED: HYDR-4798 PO (16:55)
[2023-04-16] MEDS ORDERED: OXYC325T14 PO (16:59)
[2023-04-16] MEDS ORDERED: TIZA4CAP13 PO (16:59)
[2023-04-16] MEDS ORDERED: ALBUAER3 INH (16:59)
[2023-04-16] MEDS ORDERED: ASPI-543 PO (17:03)
[2023-04-16] MEDS ORDERED: GABA-1308 PO (17:03)
[2023-04-17] VITALS (105 sets, daily range): BP systolic 94–118; BP diastolic 61–74; PULSE 105–119; RESP 19–32; TEMP 97.7–99.1; O2SAT 93–100
[2023-04-17] MEDS: IPRATROPIUM BROM 0.5 MG/2.5ML INH SOL NEB SCH ×6 (02:09→23:03)
[2023-04-17 02:42] LABS: Basophils # (auto) 0 10 ^3/uL (0-0.2); Basophils % (auto) 0.3 % (0.0-2.0); Eosinophils # (auto) 0.3 10 ^3/uL (0-0.8); Eosinophils % (auto) 1.8 % (0.0-7.0); Hematocrit 34.6 % (36.0-46.0); Hemoglobin 11.6 g/dL (12.2-16.2); Lymphocytes # (auto) 1.6 10 ^3/uL (0.4-5.4); Lymphocytes % (auto) 10.6 % (10.0-50.0); Mean Corpuscular Hemoglobin 29.1 pg (28.0-32.0); Mean Corpuscular Hgb Conc. 33.6 g/dL (32.0-36.0); Mean Corpuscular Volume 86.7 fL (80.0-100.0); Monocytes # (auto) 1.1 10 ^3/uL (0-1.3); Monocytes % (auto) 7.3 % (0.0-12.0); Neutrophils # (auto) 12.1 10 ^3/uL (1.6-8.6); Red Blood Cells 3.99 10^6/uL (4.0-5.20); Red Cell Distribution Width 13.7 % (11.8-14.3); White Blood Cell 15.1 10^3/uL (4.4-10.8)
[2023-04-17 02:56] LABS: Alanine Aminotransferase 203 U/L (7-40); Alkaline Phosphatase 107 U/L (46-116); Anion Gap 6 (5-15); Aspartate Aminotransferase 94 U/L (13-40); BUN/Creatinine Ratio 16.4 (10.0-20.0); Bilirubin, Total 0.3 mg/dL (0.2-1.0); Blood Urea Nitrogen 10 mg/dL (9-23); Calcium 7.7 mg/dL (8.7-10.4); Carbon Dioxide 22 mmol/L (20-30); Chloride 113 mmol/L (98-107); Glucose 91 mg/dL (74-106); Potassium 3.5 mmol/L (3.5-5.1); Sodium 141 mmol/L (136-145); Total Protein 5.2 g/dL (5.7-8.2)
[2023-04-17] MEDS: MIDAZOLAM DRIP 50 mg/50mL 50 ML IV SCH ×4 (03:18→19:29)
[2023-04-17] MEDS: PROPOFOL 100 ML IV SCH ×3 (05:17→17:14)
[2023-04-17] MEDS: ACCU-CHEK COMFORT CURVE STRIP VI SCH ×4 (05:24→23:07)
[2023-04-17] MEDS: NOREPINEPHRINE 8 MG/250ML KIT 250 ML IV SCH (06:20)
[2023-04-17 07:20] LABS: Base Excess -8.4 mmol/L (-2.0-2.0)
[2023-04-17] MEDS: fentaNYL Drip 2500mCg/250mlNS 250 ML IV SCH ×2 (08:21→19:39)
[2023-04-17] MEDS: VANCOMYCIN 1GM/200ML 200 ML IV SCH ×3 (08:22→23:00)
[2023-04-17] MEDS: FAMOTIDINE (10MG/ML) 2ML VL IV SCH ×2 (08:22→20:36)
[2023-04-17] MEDS: ENOXAPARIN SOD 40 MG/0.4 ML SYRINGE SC SCH (08:22)
[2023-04-17] MEDS: MEROPENEM 1GM IVPB 50 ML IV SCH ×2 (09:59→17:13)
[2023-04-17] MEDS ORDERED: SODIUM CHLORIDE 0.9% 250 ML IV ONE (12:00)
[2023-04-17 13:08] LABS: INR 1.08 (0.9-1.15); Prothrombin Time 11.3 sec (9.3-11.8)
[2023-04-17] MEDS ORDERED: LIDOCAINE 1% (LOCAL ANESTH.) PF 5ml SDV ID ONE (16:15)
[2023-04-17] MEDS ORDERED: DEXTROSE (50%) 50ML SYRG IV PRN (19:00)
[2023-04-17] MEDS: MUPIROCIN 2% OINT 15gm or 22gm FOR MRSA NARES EACHNOSTRI SCH (20:36)
[2023-04-17] MEDS: SODIUM CHLOR 0.9% PF (SALINE LOCK) 10ML VIAL/SYR IV SCH (20:37)
[2023-04-17] MEDS: InsuLIN REG 1unit/0.01ml Soln (100units/ml) SC SCH (23:07)
[2023-04-18] VITALS (108 sets, daily range): BP systolic 86–108; BP diastolic 56–68; PULSE 88–110; RESP 13–26; TEMP 97.2–100; O2SAT 97–100
[2023-04-18] MEDS: MEROPENEM 1GM IVPB 50 ML IV SCH ×3 (00:36→17:43)
[2023-04-18 02:32] LABS: Basophils # (auto) 0 10 ^3/uL (0-0.2); Basophils % (auto) 0.2 % (0.0-2.0); Eosinophils # (auto) 0 10 ^3/uL (0-0.8); Hematocrit 33.8 % (36.0-46.0); Hemoglobin 10.9 g/dL (12.2-16.2); Lymphocytes # (auto) 0.7 10 ^3/uL (0.4-5.4); Lymphocytes % (auto) 3.6 % (10.0-50.0); Mean Corpuscular Hemoglobin 28.5 pg (28.0-32.0); Mean Corpuscular Hgb Conc. 32.3 g/dL (32.0-36.0); Monocytes # (auto) 1.6 10 ^3/uL (0-1.3); Monocytes % (auto) 8.7 % (0.0-12.0); Neutrophils # (auto) 16.4 10 ^3/uL (1.6-8.6); Neutrophils % (auto) 87.5 % (37.0-80.0); Red Blood Cells 3.84 10^6/uL (4.0-5.20); Red Cell Distribution Width 13.7 % (11.8-14.3); White Blood Cell 18.7 10^3/uL (4.4-10.8)
[2023-04-18] MEDS: IPRATROPIUM BROM 0.5 MG/2.5ML INH SOL NEB SCH ×6 (02:40→22:08)
[2023-04-18 02:47] LABS: Alanine Aminotransferase 131 U/L (7-40); Alkaline Phosphatase 126 U/L (46-116); Anion Gap 6 (5-15); Aspartate Aminotransferase 65 U/L (13-40); BUN/Creatinine Ratio 13.8 (10.0-20.0); Blood Urea Nitrogen 9 mg/dL (9-23); Calcium 8.1 mg/dL (8.7-10.4); Carbon Dioxide 25 mmol/L (20-30); Chloride 113 mmol/L (98-107); Glucose 170 mg/dL (74-106); Potassium 3.5 mmol/L (3.5-5.1); Sodium 144 mmol/L (136-145)
[2023-04-18 02:48] LABS: Bilirubin, Total 0.3 mg/dL (0.2-1.0); Total Protein 5.4 g/dL (5.7-8.2)
[2023-04-18] MEDS: MIDAZOLAM DRIP 50 mg/50mL 50 ML IV SCH ×2 (02:51→11:32)
[2023-04-18] MEDS: PROPOFOL 100 ML IV SCH (05:17)
[2023-04-18] MEDS: NOREPINEPHRINE 8 MG/250ML KIT 250 ML IV SCH (05:18)
[2023-04-18] MEDS: InsuLIN REG 1unit/0.01ml Soln (100units/ml) SC SCH ×4 (05:20→23:28)
[2023-04-18] MEDS: ACCU-CHEK COMFORT CURVE STRIP VI SCH ×4 (05:20→23:25)
[2023-04-18] MEDS: fentaNYL Drip 2500mCg/250mlNS 250 ML IV SCH ×2 (06:33→20:48)
[2023-04-18 08:08] LABS: Base Excess -1.5 mmol/L (-2.0-2.0)
[2023-04-18] MEDS: VANCOMYCIN 1GM/200ML 200 ML IV SCH ×3 (08:45→23:30)
[2023-04-18] MEDS: FAMOTIDINE (10MG/ML) 2ML VL IV SCH ×2 (08:45→20:53)
[2023-04-18] MEDS: SODIUM CHLOR 0.9% PF (SALINE LOCK) 10ML VIAL/SYR IV SCH ×2 (08:45→20:53)
[2023-04-18] MEDS: ENOXAPARIN SOD 40 MG/0.4 ML SYRINGE SC SCH (08:46)
[2023-04-18] MEDS: MUPIROCIN 2% OINT 15gm or 22gm FOR MRSA NARES EACHNOSTRI SCH ×2 (10:01→20:53)
[2023-04-19] VITALS (60 sets, daily range): BP systolic 100–120; BP diastolic 60–94; PULSE 86–110; RESP 22–26; TEMP 96.4–100.2; O2SAT 96–100
[2023-04-19] MEDS: MEROPENEM 1GM IVPB 50 ML IV SCH ×2 (00:37→08:04)
[2023-04-19] MEDS: IPRATROPIUM BROM 0.5 MG/2.5ML INH SOL NEB SCH ×3 (02:18→09:36)
[2023-04-19 02:38] LABS: Alanine Aminotransferase 88 U/L (7-40); Alkaline Phosphatase 115 U/L (46-116); Anion Gap 9 (5-15); Aspartate Aminotransferase 62 U/L (13-40); BUN/Creatinine Ratio 24.5 (10.0-20.0); Basophils # (auto) 0 10 ^3/uL (0-0.2); Basophils % (auto) 0.3 % (0.0-2.0); Bilirubin, Total 0.4 mg/dL (0.2-1.0); Blood Urea Nitrogen 13 mg/dL (9-23); Calcium 8.2 mg/dL (8.7-10.4); Carbon Dioxide 24 mmol/L (20-30); Chloride 113 mmol/L (98-107); Eosinophils # (auto) 0 10 ^3/uL (0-0.8); Eosinophils % (auto) 0.2 % (0.0-7.0); Glucose 106 mg/dL (74-106); Hematocrit 31.2 % (36.0-46.0); Hemoglobin 10.3 g/dL (12.2-16.2); Lymphocytes % (auto) 7.9 % (10.0-50.0); Mean Corpuscular Hemoglobin 28.9 pg (28.0-32.0); Mean Corpuscular Hgb Conc. 33.1 g/dL (32.0-36.0); Mean Corpuscular Volume 87.5 fL (80.0-100.0); Monocytes # (auto) 0.9 10 ^3/uL (0-1.3); Monocytes % (auto) 7.1 % (0.0-12.0); Neutrophils % (auto) 84.5 % (37.0-80.0); Nucleated Red Blood Cells % 0.1 %; Potassium 3.1 mmol/L (3.5-5.1); Red Blood Cells 3.57 10^6/uL (4.0-5.20); Red Cell Distribution Width 13.8 % (11.8-14.3); Sodium 146 mmol/L (136-145); Total Protein 5.4 g/dL (5.7-8.2)
[2023-04-19] MEDS: ACCU-CHEK COMFORT CURVE STRIP VI SCH ×2 (05:32→12:00)
[2023-04-19] MEDS: InsuLIN REG 1unit/0.01ml Soln (100units/ml) SC SCH ×2 (05:32→12:00)
[2023-04-19] MEDS: NOREPINEPHRINE 8 MG/250ML KIT 250 ML IV SCH (06:07)
[2023-04-19] MEDS: VANCOMYCIN 1GM/200ML 200 ML IV SCH (08:03)
[2023-04-19] MEDS: POTASSIUM CHL 20MEQ/100ML 100 ML IV SCH ×2 (08:03→09:57)
[2023-04-19] MEDS: ENOXAPARIN SOD 40 MG/0.4 ML SYRINGE SC SCH (09:53)
[2023-04-19] MEDS: FAMOTIDINE (10MG/ML) 2ML VL IV SCH (09:54)
[2023-04-19] MEDS: SODIUM CHLOR 0.9% PF (SALINE LOCK) 10ML VIAL/SYR IV SCH (09:54)
[2023-04-19] MEDS: PROPOFOL 100 ML IV SCH (10:15)
[2023-04-19] MEDS: MUPIROCIN 2% OINT 15gm or 22gm FOR MRSA NARES EACHNOSTRI SCH (10:24)
[2023-04-19 11:18] LABS: Base Excess -0.6 mmol/L (-2.0-2.0)
[2023-04-19] MEDS ORDERED: MORPHINE SULFATE INJ 2 MG/ml SYRG IV PRN (13:30)
[2023-04-19] MEDS ORDERED: LORazepam 2MG/ML-1ML VIAL IV PRN (13:30)
== END 2023-04-19 14:46 | DRG 720 ==
LOC: ER 15:13 → TELE 04-15 05:34 → ICU WEST 04-16 02:37
PROVIDERS: ADMIT Internal Medicine Pulmonary Disease; ATTEND Internal Medicine Pulmonary Disease
PROC: 5A1955Z Respiratory Ventilation, Greater than 96 Consecutive Hours (ICD-10-PCS; principal; 2023-04-15)
PROC: 0BH17EZ Insertion of Endotracheal Airway into Trachea, Via Natural or Artificial Opening (ICD-10-PCS; 2023-04-15)
PROC: 5A12012 Performance of Cardiac Output, Single, Manual (ICD-10-PCS; 2023-04-15)
DX: A41.9 Sepsis, unspecified organism (principal); G93.6 Cerebral edema; I46.9 Cardiac arrest, cause unspecified; J96.21 Acute and chronic respiratory failure with hypoxia; N17.0 Acute kidney failure with tubular necrosis; J18.9 Pneumonia, unspecified organism; R65.21 Severe sepsis with septic shock; K56.609 Unspecified intestinal obstruction, unspecified as to partial versus complete obstruction; E87.1 Hypo-osmolality and hyponatremia; Z66 Do not resuscitate; Z51.5 Encounter for palliative care; K56.7 Ileus, unspecified; I21.A1 Myocardial infarction type 2; J44.0 Chronic obstructive pulmonary disease with (acute) lower respiratory infection; G93.1 Anoxic brain damage, not elsewhere classified; J44.9 Chronic obstructive pulmonary disease, unspecified; E11.65 Type 2 diabetes mellitus with hyperglycemia; J96.22 Acute and chronic respiratory failure with hypercapnia; N39.0 Urinary tract infection, site not specified; I50.23 Acute on chronic systolic (congestive) heart failure; K76.82 Hepatic encephalopathy; Z79.4 Long term (current) use of insulin; Z81.8 Family history of other mental and behavioral disorders; Z82.49 Family history of ischemic heart disease and other diseases of the circulatory system; Z83.3 Family history of diabetes mellitus
CPT/HCPCS: 31500; 36415; 36569; 36600; 70450; 71045; 71275; 74018; 74176; 74250; 80048; 80053; 80061; 80202; 80307; 80320; 81001; 81025; 82150; 82550; 82805; 82962; 83036; 83605; 83690; 83880; 84443; 84484; 85007; 85025; 85027; 85379; 85610; 85730; 87040; 87070; 87077; 87081; 87086; 87186; 87205; 87493; 92950; 93005; 93306; 93970; 94002; 94003; 94640; 96361; 96365; 96367; 96372; 96375; G0378; J0696; J1815; J1956; J2185; J2250; J2405; J2704; J3480; J3490; J7060